=== PATIENT | male | born 1960 | race Caucasian/White ===

== ENCOUNTER 2018-02-08 09:21 | Outpatient (CLI) | payer OTHER | END 2018-02-08 11:03 | disposition home or self-care (01) | LOC: LAB 09:21 | DX: I10 Essential (primary) hypertension (principal) ==

== ENCOUNTER 2018-07-14 10:47 | Outpatient (CLI) | payer OTHER | END 2018-07-14 10:57 | disposition home or self-care (01) | LOC: SONOGRAMA 10:47 | DX: R10.9 Unspecified abdominal pain (principal) ==

== ENCOUNTER → 2022-12-09 07:36 | Outpatient (CLI) | payer OTHER | END | disposition home or self-care (01) | LOC: LAB 07:36 | PROVIDERS: ATTEND Surgery | DX: Z12.11 Encounter for screening for malignant neoplasm of colon (principal); Z80.0 Family history of malignant neoplasm of digestive organs ==

== ENCOUNTER 2023-02-23 15:42 | Outpatient (CLI) | payer OTHER | END 2023-02-23 16:00 | disposition home or self-care (01) | LOC: SONOGRAMA 15:42 | PROVIDERS: ATTEND Radiology Diagnostic Radiology | DX: R80.9 Proteinuria, unspecified (principal) ==

== ENCOUNTER 2024-03-04 11:53 | Outpatient (CLI) | payer OTHER | END 2024-03-04 12:10 | disposition home or self-care (01) | LOC: RAD 11:53 | PROVIDERS: ATTEND Radiology Diagnostic Radiology | DX: M19.90 Unspecified osteoarthritis, unspecified site (principal) ==

== ENCOUNTER 2024-09-30 07:18 | Outpatient (CLI) | payer OTHER ==
[2024-09-30 08:03] LABS: INR 0.97; PARTIAL THROMBOPLASTIN TIME 26.4 SECONDS (22.0-34.0); PROTHROMBIN TIME 10.6 SECONDS (9.0-11.5)
== END 2024-09-30 23:00 | disposition home or self-care (01) ==
LOC: LAB 07:18
PROVIDERS: ATTEND Orthopaedic Surgery Hand Surgery
DX: D69.9 Hemorrhagic condition, unspecified (principal)